=== PATIENT | female | born 1985 | race Hispanic/Latino ===

== ENCOUNTER 2017-11-25 18:49 | Inpatient (IN) | payer MEDICAID ==
[~2017-11-25] VITALS: Ht 170.2 cm; Wt 100.2 kg
[2017-11-25 19:35] LABS: APPEARANCE,URINE Clear (CLEAR); BILIRUBIN,URINE Negative (NEGATIVE); COLOR,URINE Yellow (YELLOW); GLUCOSE, URINE (UA) Negative (NEGATIVE); KETONES,URINE 15 mg/dL (NEGATIVE); LEUKOCYTE ESTERASE ,URINE Negative (NEGATIVE); NITRATE,URINE Negative (NEGATIVE); OCCULT BLOOD,URINE Negative (NEGATIVE); PROTEIN,URINE Negative (NEGATIVE)
[2017-11-25 19:43] LABS: AMPHET/METH SCREEN,URINE NEGATIVE (NEGATIVE); BARBITURATE SCREEN, URINE NEGATIVE (NEGATIVE); BENZODIAZEPINES SCREEN,URINE NEGATIVE (NEGATIVE); CANNABINOID SCREEN,URINE NEGATIVE (NEGATIVE); COCAINE SCREEN,URINE NEGATIVE (NEGATIVE); OPIATE SCREEN,URINE NEGATIVE (NEGATIVE); PHENCYCLIDINE SCREEN,URINE NEGATIVE (NEGATIVE)
[2017-11-25 20:06] VITALS: BP 110/68
[2017-11-25] MEDS: LACTATED RINGERS 1000ML 1,000 ML IV SCH ×2 (20:06→20:49)
[2017-11-25 21:28] LABS: HEMATOCRIT 28.7 % (36-48); MEAN CORPUSCULAR HEMOGLOBIN 23.2 pg (27.0-33.0); MEAN CORPUSCULAR HGB CONC 31.7 g/dL (32.0-36.0); MEAN CORPUSCULAR VOLUME 73.3 fL (79-99); PLATELET COUNT (AUTO) 197 K/uL (130-400); RED BLOOD CELL COUNT(AUTO) 3.92 MIL/uL (4.00-5.50); RED CELL DISTRIBUTION WIDTH 17.4 % (11.0-15.5); WHITE BLOOD COUNT (AUTO) 9.9 K/uL (4.8-10.8)
[2017-11-25] MEDS ORDERED: BUTORPHANOL TARTRATE 2 MG/ML IVP ONE (21:30)
[2017-11-25] MEDS ORDERED: CEFAZOLIN SODIUM 1 GM VIAL IVP PRN (22:30)
[2017-11-25] MEDS ORDERED: CEFAZOLIN SODIUM 1 GM VIAL ONE (22:30)
[2017-11-25] MEDS ORDERED: FENTANYL CITRATE PF 50 MCG/1 ML 2ML VIAL ONE (22:59)
[2017-11-25] MEDS ORDERED: EPHEDRINE-NS PF 50MG/5ML SYRINGE IV ONE (23:05)
[2017-11-25] MEDS ORDERED: ONDANSETRON HCL 4 MG/2 ML VIAL ONE (23:42)
[2017-11-25] MEDS ORDERED: OXYTOCIN 10 USP UNITS/ML ONE (23:42)
[2017-11-26] VITALS (15 sets, daily range): BP systolic 93–124; BP diastolic 50–81
[2017-11-26] MEDS ORDERED: DEXAMETHASONE SOD PHOSPHATE 10MG/ML 1ML VIAL ONE (00:04)
[2017-11-26] MEDS ORDERED: DiphenhydrAMINE HCL 50 MG/ML VIAL ONE (00:04)
[2017-11-26] MEDS ORDERED: OXYTOCIN-LR 20 UNITS/1000 ML 1,000 ML IV PRN (02:05)
[2017-11-26] MEDS ORDERED: SODIUM CHLORIDE 0.9% 10 ML VIAL IVP PRN (02:15)
[2017-11-26] MEDS ORDERED: PROMETHAZINE HCL 25 MG/ML 1ML AMPULE IM PRN (02:15)
[2017-11-26] MEDS ORDERED: MEPERIDINE-PF 75 MG/ML SYG IM PRN (02:15)
[2017-11-26] MEDS ORDERED: DEXTROSE 5 %-0.45 % NACL 1,000 ML IV PRN (02:15)
[2017-11-26] MEDS ORDERED: PROMETHAZINE HCL 25 MG/ML 1ML AMPULE IM ONE (02:26)
[2017-11-26] MEDS ORDERED: MEPERIDINE-PF 50 MG/ML SYG ONE (02:27)
[2017-11-26] MEDS ORDERED: OXYTOCIN 10 USP UNITS/ML ONE (02:31)
[2017-11-26 06:47] LABS: HEMATOCRIT 27.8 % (36-48); MEAN CORPUSCULAR HEMOGLOBIN 23.4 pg (27.0-33.0); MEAN CORPUSCULAR HGB CONC 32.3 g/dL (32.0-36.0); MEAN CORPUSCULAR VOLUME 72.4 fL (79-99); NUCLEATED RED BLOOD CELLS 0.1 % (0.0-0.19); PLATELET COUNT (AUTO) 213 K/uL (130-400); RED BLOOD CELL COUNT(AUTO) 3.84 MIL/uL (4.00-5.50); RED CELL DISTRIBUTION WIDTH 17.1 % (11.0-15.5); WHITE BLOOD COUNT (AUTO) 14.6 K/uL (4.8-10.8)
[2017-11-26 06:53] LABS: RAPID PLASMA REAGIN NONREACTIVE (NONREACTIVE)
[2017-11-26] MEDS ORDERED: ACETAMINOPHEN EXTRA STRENGTH 500 MG TABLET PO PRN (09:15)
[2017-11-26] MEDS ORDERED: BISACODYL 10 MG SUPP.RECT RC PRN (09:15)
[2017-11-26] MEDS ORDERED: LANOLIN 30GM OINTMENT TP PRN (09:15)
[2017-11-26] MEDS: ACETAMINOPHEN-CODEINE 300/30MG TAB PO PRN ×2 (15:35→20:04)
[2017-11-27] MEDS: SIMETHICONE 80 MG TAB.CHEW PO PRN ×4 (01:45→21:15)
[2017-11-27] MEDS: ACETAMINOPHEN-CODEINE 300/30MG TAB PO PRN ×4 (02:09→17:15)
[2017-11-27 02:40] VITALS: BP 114/72
[2017-11-27 07:34] VITALS: BP 97/56
[2017-11-27] MEDS: DOCUSATE SODIUM 100 MG CAP PO SCH ×2 (09:59→21:15)
[2017-11-27 10:22] LABS: HEPATITIS Bs ANTIGEN SCREEN P Negative (Negative)
[2017-11-27] MEDS: LACTATED RINGERS 1000ML 1,000 ML IV SCH (10:42)
[2017-11-27 12:11] VITALS: BP 122/78
[2017-11-27 15:52] VITALS: BP 121/72
[2017-11-27 19:23] VITALS: BP 118/83
[2017-11-27 23:03] VITALS: BP 113/57
[2017-11-28] MEDS: ACETAMINOPHEN-CODEINE 300/30MG TAB PO PRN ×3 (00:38→17:10)
[2017-11-28 03:40] VITALS: BP 118/69
[2017-11-28 07:41] VITALS: BP 114/79
[2017-11-28] MEDS: DOCUSATE SODIUM 100 MG CAP PO SCH (08:18)
[2017-11-28] MEDS: SIMETHICONE 80 MG TAB.CHEW PO PRN (08:18)
[2017-11-28] MEDS ORDERED: OXYTOCIN 10 USP UNITS/ML ONE (11:06)
[2017-11-28 12:01] VITALS: BP 120/90
[2017-11-28 15:29] VITALS: BP 121/67
== END 2017-11-28 18:30 | disposition home or self-care (01) | DRG 540 ==
LOC: EDH 18:49 → LDH 19:10 → OBSVTOIN 19:10 → WSH 11-26 04:20
PROVIDERS: ADMIT Obstetrics & Gynecology; ATTEND Obstetrics & Gynecology
PROC: 10D00Z1 Extraction of Products of Conception, Low, Open Approach (ICD-10-PCS; principal; 2017-11-25 23:00)
DX: O34.211 Maternal care for low transverse scar from previous cesarean delivery (principal); K66.1 Hemoperitoneum; O98.22 Gonorrhea complicating childbirth; O98.82 Other maternal infectious and parasitic diseases complicating childbirth; O99.344 Other mental disorders complicating childbirth; Z37.0 Single live birth; Z3A.36 36 weeks gestation of pregnancy
CPT/HCPCS: 36415; 59510; 76805; 80305; 81003; 85027; 86592; 86701; 86850; 86900; 86901; 87340; 87390; A4344; A4450; A4606; J0595; J0690; J1100; J1200; J2175; J2405; J2550; J2590; J3010; J3490; J7120

== ENCOUNTER 2023-08-11 17:22 | Emergency (ER) | payer MEDICAID, OTHER ==
[~2023-08-11] VITALS: Ht 170.2 cm; Wt 104.3 kg
[2023-08-11] MEDS ORDERED: DiphenhydrAMINE HCL 50 MG/ML VIAL IV ONE (18:00)
[2023-08-11] MEDS ORDERED: EPINEPHRINE PF 1MG (1:1,000) 1 MG/ML AMP SQ ONE (18:00)
[2023-08-11] MEDS ORDERED: FAMOTIDINE 20MG VIAL IV ONE (18:00)
[2023-08-11] MEDS ORDERED: SOLU-MEDROL 125MG VIAL IVP ONE (18:00)
[2023-08-11 18:29] LABS: BASOPHILS # (AUTO) 0.03 K/uL (0.00-0.20); BASOPHILS % (AUTO) 0.2 % (0.0-5.0); EOSINOPHILS # (AUTO) 0.04 K/uL (0.00-0.70); EOSINOPHILS % (AUTO) 0.3 % (0.0-8.0); HEMATOCRIT 39.6 % (36-48); IMMATURE GRANULOCYTE ABSOLUTE 0.13 K/uL (0-1); LYMPHOCYTES # (AUTO) 1.7 K/uL (1.0-4.8); LYMPHOCYTES % (AUTO) 11.1 % (21.0-51.0); MEAN CORPUSCULAR HGB CONC 32.6 g/dL (32.0-36.0); MONOCYTES # (AUTO) 0.2 K/uL (0.1-1.0); NEUTROPHILS # (AUTO) 13.3 K/uL (1.8-7.7); NEUTROPHILS % (AUTO) 86.6 % (40.0-77.0); PLATELET COUNT (AUTO) 241 K/uL (130-400); RED BLOOD CELL COUNT(AUTO) 4.45 MIL/uL (4.00-5.50); WHITE BLOOD COUNT (AUTO) 15.4 K/uL (4.8-10.8)
[2023-08-11 18:46] LABS: ALBUMIN 3.9 g/dL (3.5-5.0); BILIRUBIN,TOTAL 0.5 mg/dL (0.2-1.0); POTASSIUM 4.1 mmol/L (3.5-5.1); TOTAL PROTEIN, SERUM 7.4 g/dL (6.0-8.3)
[2023-08-11 19:07] LABS: RAPID GROUP A STREP negative (NEGATIVE)
[2023-08-11 19:14] LABS: SARS-CoV-2, RNA, NAAT NEGATIVE SARS CoV-2 (NEGATIVE)
[2023-08-11 19:19] LABS: INFLUENZA TYPE A Negative For Type A (NEGATIVE); INFLUENZA TYPE B Negative For Type B (NEGATIVE)
[2023-08-11 21:00] VITALS: BP 121/77; PULSE 102; RESP 18; O2SAT 96
== END 2023-08-11 21:41 | disposition home or self-care (01) ==
LOC: EDH 17:22
DX: K12.2 Cellulitis and abscess of mouth (principal); Z20.822 Contact with and (suspected) exposure to COVID-19; Z88.5 Allergy status to narcotic agent; Z88.6 Allergy status to analgesic agent; Z88.8 Allergy status to other drugs, medicaments and biological substances; Z98.890 Other specified postprocedural states
CPT/HCPCS: 99285; 96374; 71045; 96375; 87635; 84484; 80053; 85025; 87880; 87804 ×2; 36415; 70360; 93005; 96372; C9803; J1200; J3490; J2930; J0171